=== PATIENT | female | born 1965 | race Caucasian/White ===

== ENCOUNTER 2022-06-12 06:24 | Observation (INO) | payer OTHER ==
[2022-06-12] MEDS ORDERED: SODIUM CHLORIDE 0.9% 500 ML 500 ML IV STA (07:00)
--- NOTE | 2022-06-12 07:07 | ED ---
Headache HPI - General Source: patient, RN notes reviewed, old records reviewed Mode of arrival: ambulatory Limitations: no limitations - History of Present Illness MD Complaint: headache -: hour(s) (1) Onset Description: awoke with symptoms Location: diffuse Severity scale (1-10): 4 Quality: pulsatile Consistency: constant Improves With: nothing Worsens With: none Associated Symptoms: other (tongue thick, whole body hot/cold flash) Treatments Prior to Arrival: none <Keo Fitzpatrick - Last Filed: 06/12/22 16:14> <Cinthia Queen - Last Filed: 06/12/22 23:10> - General Chief Complaint: Headache Stated Complaint: head/neck pain Time Seen by Provider: 06/12/22 06:50 - History of Present Illness Initial Comments: This is a nontoxic-appearing 56-year-old female who presents to the emergency room with complaints of awakening with a diffuse pulsatile headache, 5/10. Patient states that she felt like her tongue was swollen and hanging out of her mouth upon awakening and also reports whole-body hot and cold flashes. She den ies any difficulty in breathing, chest pain, abdominal pain, incontinence of bowel or bladder, no fevers. States that she does have a history of hypertension, hyperlipidemia, anxiety and depression. Is a previous smoker. States her daughter recently diagnoased with strep. (Keo Fitzpatrick) - Related Data Home Medications Medication Instructions Recorded Confirmed ALPRAZolam [Xanax] 0.5 mg PO HS PRN 03/15/14 06/12/22 Ibuprofen [Motrin] 800 mg PO BID PRN 03/15/14 06/12/22 Lovastatin [Mevacor] 20 mg PO HS 03/15/14 06/12/22 atenoloL 100 mg PO HS 03/15/14 06/12/22 lisinopriL [Zestril] 10 mg PO DAILY 03/15/14 06/12/22 Citalopram Hydrobromide [CeleXA] 20 mg PO HS 06/12/22 06/12/22 Fluticasone Nasal [place] [Flonase 1 spr EA NOSTRIL DAILY 06/12/22 06/12/22 Nasal [place]] Levothyroxine Sodium [Synthroid] 125 mcg PO DAILY 06/12/22 06/12/22 Omeprazole 20 mg PO DAILY PRN 06/12/22 06/12/22 hydroCHLOROthiazide 12.5 mg PO DAILY 06/12/22 06/12/22 metFORMIN HCL [Glucophage] 500 mg PO DAILY 06/12/22 06/12/22 Allergies Allergy/AdvReac Type Severity Reaction Status Date / Time No Known Allergies Allergy Verified 06/12/22 12:02 Review of Systems ROS Other: All systems not noted in ROS Statement are negative. <Keo Fitzpatrick - Last Filed: 06/12/22 16:14> ROS Other: All systems not noted in ROS Statement are negative. <Cinthia Queen - Last Filed: 06/12/22 23:10> ROS Statement: Those systems with pertinent positive or pertinent negative responses have been documented in the HPI. Past Medical History Past Medical History: Hyperlipidemia, Hypertension History of Any Multi-Drug Resistant Organisms: None Reported Past Surgical History: Tonsillectomy Past Psychological History: Anxiety, Depression Past Alcohol Use History: None Reported - Past Family History Mother Family Medical History: CVA/TIA <Keo Fitzpatrick - Last Filed: 06/12/22 16:14> General Exam Limitations: no limitations General appearance: alert, in no apparent distress Head exam: Present: atraumatic Eye exam: Present: normal appearance, EOMI. Absent: scleral icterus, conjunctival injection, periorbital swelling ENT exam: Present: mucous membranes moist Neck exam: Present: full ROM. Absent: tenderness, meningismus, lymphadenopathy, thyromegaly Respiratory exam: Absent: respiratory distress, accessory muscle use Cardiovascular Exam: Present: regular rate Extremities exam: Present: full ROM, normal capillary refill Back exam: Absent: tenderness Neurological exam: Present: alert, oriented X3 Expanded Patient oriented to: Present: person, place, time Speech: Present: fluid speech Cranial nerves: EOM's Intact: Normal, Gag Reflex: Normal Motor strength exam: RUE: 5, LUE: 5, RLE: 5, LLE: 5 Eye Response: (4) open spontaneously Motor Response: (6) obeys commands Verbal Response: (5) oriented [place] Total: 15 Psychiatric exam: Present: anxious Skin exam: Present: warm, dry, normal color. Absent: cyanosis, diaphoretic <Keo Fitzpatrick - Last Filed: 06/12/22 16:14> Course Vital Signs 06/12/22 06/12/22 06/12/22 06:26 06:48 06:50 Temperature 98 F Pulse Rate 68 67 70 Respiratory 18 20 15 Rate Blood Pressure 153/87 148/82 148/82 O2 Sat by Pulse 98 97 98 Oximetry 06/12/22 06/12/22 06/12/22 07:00 07:10 07:20 Temperature Pulse Rate 66 65 61 Respiratory 19 15 20 Rate Blood Pressure 148/82 133/81 133/81 O2 Sat by Pulse 96 96 Oximetry 06/12/22 06/12/22 06/12/22 07:30 07:40 07:50 Temperature Pulse Rate Respiratory Rate Blood Pressure 133/81 133/81 133/81 O2 Sat by Pulse 97 Oximetry 06/12/22 06/12/22 06/12/22 08:00 08:10 08:20 Temperature Pulse Rate 61 56 L 73 Respiratory Rate Blood Pressure 133/81 138/80 138/80 O2 Sat by Pulse 97 98 97 Oximetry 06/12/22 06/12/22 06/12/22 08:30 08:40 08:50 Temperature Pulse Rate 57 L 56 L 56 L Respiratory Rate Blood Pressure 138/80 138/80 138/80 O2 Sat by Pulse 94 L 95 95 Oximetry 06/12/22 06/12/22 06/12/22 09:00 09:10 09:20 Temperature Pulse Rate 34 L 57 L 57 L Respiratory Rate Blood Pressure 138/80 136/82 136/82 O2 Sat by Pulse 98 96 96 Oximetry 06/12/22 06/12/22 06/12/22 09:30 09:40 09:50 Temperature Pulse Rate 56 L 56 L 59 L Respiratory Rate Blood Pressure 136/82 136/82 136/82 O2 Sat by Pulse 97 96 96 Oximetry 06/12/22 06/12/22 06/12/22 10:00 11:00 13:33 Temperature Pulse Rate 59 L 59 L 66 Respiratory 18 18 18 Rate Blood Pressure 136/82 130/75 111/51 O2 Sat by Pulse 96 96 99 Oximetry 06/12/22 14:40 Temperature Pulse Rate 56 L Respiratory Rate Blood Pressure 94/56 O2 Sat by Pulse 94 L Oximetry Medical Decision Making - Lab Data Result diagrams: 06/12/22 07:56 06/12/22 07:56 - EKG Data -: EKG Interpreted by Me EKG shows normal: sinus rhythm (Sinus rhythm with ventricular rate of 61, MI interval 0.167, QRS 0.98, QTc 0.415, left axis deviation) <Keo Fitzpatrick - Last Filed: 06/12/22 16:14> - Lab Data Result diagrams: 06/12/22 07:56 06/12/22 07:56 <Cinthia Queen - Last Filed: 06/12/22 23:10> - Medical Decision Making States woke up this morning with pulsating headache and neck pain. Has been exposed to her daughter who tested positive for strep throat. Chest x-ray interpreted by me shows no evidence of consolidation, trachea midline. CT brain without contrast interpreted by me shows no evidence of intercranial bleed, mass or midline shift. Chest x-ray interpreted by radiologist no acute pulmonary process. CT brain interpreted by radiologist no acute intracranial process. Follow-up MRI can be performed as clinically indicated. EKG shows sinus rhythm with ventricular rate of 61, MI interval 0.167, QRS 0.98, QTc 0.415, left axis deviation Troponin elevated at 0.049. Patient denies any chest pain or shortness of breath. Patient is hemodynamically stable. She was given IV saline, magnesium, Reglan and Benadryl for her headache. Given aspirin for elevated troponin. Admitted with STEMI, cephalgia with cardiology consult Patient agreeable Case discussed with Dr. Queen Was pt. sent in by a medical professional or institution (, PA, SANITATION TANK W[employer]ER, urgent care, hospital, or senior living...) When possible be specific @ -[No] Did you speak to anyone other than the patient for history (EMS, parent, family, police, friend...)? What history was obtained from this source @ -[No] Did you review nursing and triage notes (agree or disagree)? Why? @ -[I reviewed and agree with nursing and triage notes] Were old charts reviewed (outside hosp., previous admission, EMS record, old EKG, old radiological studies, urgent care reports/EKG's, senior living records)? Report findings @ -[No old charts were reviewed] Differential Diagnosis (chest pain, altered mental status, abdominal pain women, abdominal pain men, vaginal bleeding, weakness, fever, dyspnea, syncope, head ache, dizziness, GI bleed, back pain, seizure, CVA, palpatations, mental health, musculoskeletal)? @ -Differential Headache: Migraine, tension, cluster, carbon monoxide, central venous thrombosis, pension karma temporal arteritis, acute closure glaucoma, intercranial hemorrhage, mastoiditis, sinusitis, head injury, this is not meant to be an all-inclusive list. EKG interpreted by me (3pts min.). @ -[As above] X-rays interpreted by me (1pt min.). @ -Yes as above CT interpreted by me (1pt min.). @ -Yes as above U/S interpreted by me (1pt. min.). @ -[None done] What testing was considered but not performed or refused? (CT, X-rays, U/S, labs)? Why? @ -[None] What meds were considered but not given or refused? Why? @ -Heparin was considered however deferred cardiology Did you discuss the management of the patient with other professionals (professionals i.e. , PA, [employer]IT[employer] T[employer] W[employer]ER, lab, RT, psych nurse, neonatal social worker, qualitative field coordinator, teacher, toxics program officer, lining caser)? Give summary @ -[No] Was smoking cessation discussed for >3mins.? @ -[No] Was critical care preformed (if so, how long)? @ -[No] Were there social determinants of health that impacted care today? How? (Homelessness, low income, unemployed, alcoholism, drug addiction, transportation, low edu. Level, literacy, decrease access to med. care, shelter, rehab)? @ -[No] Was there de-escalation of care discussed even if they declined (Discuss DNR or withdrawal of care, Hospice)? DNR status @ -[No] What co-morbidities impacted this encounter? (DM, HTN, Smoking, COPD, CAD, Cancer, CVA, ARF, Chemo, Hep., AIDS, mental health diagnosis, sleep apnea, morbid obesity)? @ -Obesity, hypertension, hyperlipidemia Was patient admitted / discharged? Hospital course, mention meds given and route, prescriptions, significant lab abnormalities, going to OR and other pertinent info. @ -Admitted Undiagnosed new problem with uncertain prognosis? @ -[No] Drug Therapy requiring intensive monitoring for toxicity (Heparin, Nitro, Insulin, Cardizem)? @ -[No] Were any procedures done? @ -[No] Diagnosis/symptom? @ -NSTEMI, cephalgia Acute, or Chronic, or Acute on Chronic? @ -Acute Uncomplicated (without systemic symptoms) or Complicated (systemic symptoms)? @ -Complicated Side effects of treatment? @ -[No] Exacerbation, Progression, or Severe Exacerbation? @ -[No] Poses a threat to life or bodily function? How? (Chest pain, [place], [place], pneumonia, PE, COPD, DKA, ARF, appy, cholecystitis, CVA, Diverticulitis, Homicidal, Suicidal, threat to staff... and all critical care pts) @ -Yes NSTEMI (Keo Fitzpatrick) - Lab Data Lab Results 06/12/22 06/12/22 06/12/22 Range/Units 07:56 07:56 07:56 WBC 4.6 (3.8-10.6) k/uL RBC 4.22 (3.80-5.40) m/uL Hgb 12.6 (11.4-16.0) gm/dL Hct 37.0 (34.0-46.0) % MCV 87.6 (80.0-100.0) fL MCH 30.0 (25.0-35.0) pg MCHC 34.2 (31.0-37.0) g/dL RDW 12.0 (11.5-15.5) % Plt Count 212 (150-450) k/uL MPV 8.3 Neutrophils % 60 % Lymphocytes % 27 % Monocytes % 5 % Eosinophils % 5 % Basophils % 1 % Neutrophils # 2.8 (1.3-7.7) k/uL Lymphocytes # 1.3 (1.0-4.8) k/uL Monocytes # 0.2 (0-1.0) k/uL Eosinophils # 0.2 (0-0.7) k/uL Basophils # 0.0 (0-0.2) k/uL PT 9.6 (9.0-12.0) sec INR 0.9 (<1.2) APTT 22.3 (22.0-30.0) sec Sodium 139 (137-145) mmol/L Potassium 4.1 (3.5-5.1) mmol/L Chloride 106 (98-107) mmol/L Carbon Dioxide 29 (22-30) mmol/L Anion Gap 4 mmol/L BUN 17 (7-17) mg/dL Creatinine 0.69 (0.52-1.04) mg/dL Est GFR (CKD-EPI)AfAm >90 (>60 ml/min/1.73 sqM) Est GFR (CKD-EPI)NonAf >90 (>60 ml/min/1.73 sqM) Glucose 110 H (74-99) mg/dL Calcium 8.7 (8.4-10.2) mg/dL Magnesium 2.0 (1.6-2.3) mg/dL Total Bilirubin 0.5 (0.2-1.3) mg/dL AST 24 (14-36) U/L ALT 23 (4-34) U/L Alkaline Phosphatase 63 (38-126) U/L Troponin I (0.000-0.034) ng/mL Total Protein 6.6 (6.3-8.2) g/dL Albumin 3.9 (3.5-5.0) g/dL 06/12/22 Range/Units 07:56 WBC (3.8-10.6) k/uL RBC (3.80-5.40) m/uL Hgb (11.4-16.0) gm/dL Hct (34.0-46.0) % MCV (80.0-100.0) fL MCH (25.0-35.0) pg MCHC (31.0-37.0) g/dL RDW (11.5-15.5) % Plt Count (150-450) k/uL MPV Neutrophils % % Lymphocytes % % Monocytes % % Eosinophils % % Basophils % % Neutrophils # (1.3-7.7) k/uL Lymphocytes # (1.0-4.8) k/uL Monocytes # (0-1.0) k/uL Eosinophils # (0-0.7) k/uL Basophils # (0-0.2) k/uL PT (9.0-12.0) sec INR (<1.2) APTT (22.0-30.0) sec Sodium (137-145) mmol/L Potassium (3.5-5.1) mmol/L Chloride (98-107) mmol/L Carbon Dioxide (22-30) mmol/L Anion Gap mmol/L BUN (7-17) mg/dL Creatinine (0.52-1.04) mg/dL Est GFR (CKD-EPI)AfAm (>60 ml/min/1.73 sqM) Est GFR (CKD-EPI)NonAf (>60 ml/min/1.73 sqM) Glucose (74-99) mg/dL Calcium (8.4-10.2) mg/dL Magnesium (1.6-2.3) mg/dL Total Bilirubin (0.2-1.3) mg/dL AST (14-36) U/L ALT (4-34) U/L Alkaline Phosphatase (38-126) U/L Troponin I 0.049 H* (0.000-0.034) ng/mL Total Protein (6.3-8.2) g/dL Albumin (3.5-5.0) g/dL Disposition Decision Date: 06/12/22 Decision Time: 09:03 <Keo Fitzpatrick - Last Filed: 06/12/22 16:14> <Cinthia Queen - Last Filed: 06/12/22 23:10> Clinical Impression: NSTEMI (non-ST elevated myocardial infarction), Cephalgia Disposition: ADMITTED IP TO THIS HOSP
[2022-06-12] MEDS ORDERED: METOCLOPRAMIDE 5 MG/ML 2 ML VIAL IVP STA (07:18)
[2022-06-12] MEDS ORDERED: MAGNESIUM SULFATE-D5W PMX 1 GM in DEXTROSE/WATER 1 100ML.BAG IVPB ONE (07:18)
[2022-06-12] MEDS ORDERED: diphenhydrAMINE 50 MG/ML 1 ML VIAL IVP STA (07:18)
--- NOTE | 2022-06-12 07:42 | XR ---
EXAMINATION TYPE: XR chest 2V DATE OF EXAM: 06/12/2022 COMPARISON: None INDICATION: Altered mental status, headache TECHNIQUE: Frontal and lateral views of the chest are obtained. FINDINGS: The heart size is normal. The pulmonary vasculature is normal. The lungs are clear. IMPRESSION: 1. No acute pulmonary process.
--- NOTE | 2022-06-12 07:44 | CT ---
EXAMINATION TYPE: CT brain wo con DATE OF EXAM: 06/12/2022 COMPARISON: None INDICATION: Headache DLP: 1143.4 mGycm, Automated exposure control for dose reduction was used. CONTRAST: None CT of the brain is performed utilizing 3 mm thick sections through the posterior fossa and 3 mm thick sections through the remaining calvarium. Study is performed within 24 hours of arrival to the hosp ital. No abnormal hyperdensity is present to suggest an acute intracranial hemorrhage. No mass lesion is evident. No acute infarcts are evident. Ventricles and sulci are appropriate for the patient age. Paranasal sinuses and mastoid air cells within the [id number] are clear. IMPRESSIONS: 1. No acute intracranial process. Follow-up MRI can be performed as clinically indicated.
[2022-06-12 08:14] LABS: Basophils % (A) 1 %; Eosinophils # (A) 0.2 k/uL (0-0.7); Eosinophils % (A) 5 %; HGB 12.6 gm/dL (11.4-16.0); Lymphocytes # (A) 1.3 k/uL (1.0-4.8); Lymphocytes % (A) 27 %; MCHC 34.2 g/dL (31.0-37.0); MCV 87.6 fL (80.0-100.0); Mean Platelet Volume 8.3; Monocytes # (A) 0.2 k/uL (0-1.0); Monocytes % (A) 5 %; Neutrophils # (A) 2.8 k/uL (1.3-7.7); Neutrophils % (A) 60 %; Platelet Count 212 k/uL (150-450); RBC 4.22 m/uL (3.80-5.40); WBC 4.6 k/uL (3.8-10.6)
[2022-06-12 08:26] LABS: ALT 23 U/L (4-34); AST 24 U/L (14-36); African American GFR (CKD) >90 (>60 ml/min/1.73 sqM); Albumin 3.9 g/dL (3.5-5.0); Alkaline Phosphatase 63 U/L (38-126); Anion Gap 4 mmol/L; Blood Urea Nitrogen 17 mg/dL (7-17); Calcium 8.7 mg/dL (8.4-10.2); Carbon Dioxide 29 mmol/L (22-30); Chloride 106 mmol/L (98-107); Glucose 110 mg/dL (74-99); Non-African American GFR(CKD) >90 (>60 ml/min/1.73 sqM); Potassium 4.1 mmol/L (3.5-5.1); Sodium 139 mmol/L (137-145); Total Bilirubin 0.5 mg/dL (0.2-1.3); Total Protein 6.6 g/dL (6.3-8.2)
[2022-06-12 08:48] LABS: INR 0.9 (<1.2); Partial Thromboplastin Time 22.3 sec (22.0-30.0); Prothrombin Time 9.6 sec (9.0-12.0)
[2022-06-12] MEDS ORDERED: HYDROcodone/APAP 5-325MG 1 EACH TAB PO STA (08:59)
[2022-06-12] MEDS ORDERED: ASPIRIN 81 MG PO STA (08:59)
[2022-06-12] MEDS ORDERED: NALOXONE 0.4 MG/ML 1 ML VIAL IV PRN (09:03)
[2022-06-12] MEDS ORDERED: ACETAMINOPHEN TAB 325 MG TAB PO PRN (09:08)
[2022-06-12] MEDS ORDERED: HYDROmorphone 1 MG/ML 1 ML SYRINGE IVP PRN (09:08)
[2022-06-12] MEDS ORDERED: ONDANSETRON 4 MG/2 ML VIAL IVP PRN (09:08)
[2022-06-12] MEDS: PANTOPRAZOLE 40 MG/10 ML VIAL IV SCH (10:21)
[2022-06-12] MEDS ORDERED: PANTOPRAZOLE 40 MG TABLET PO PRN (13:05)
[2022-06-12] MEDS ORDERED: ALPRAZolam 0.5 MG TAB PO PRN (13:05)
--- NOTE | 2022-06-12 13:48 | HP ---
HISTORY AND PHYSICAL CHIEF COMPLAINT: Headache and neck pain. HISTORY OF PRESENT ILLNESS: This is a 56-year-old woman with a past medical history of hypertension, hyperlipidemia, was complaining of severe headache which is 5/10, diffuse in character. The patient's tongue was swollen and the patient came to [facility]. The troponin was elevated up to 0.049 and the patient admitted for further evaluation and treatment. There is no history of any fever, rigors, or chills at this time. The troponins are transient elevation, repeat troponin was less than 0.012. There is no chest pain. PAST MEDICAL HISTORY: Reviewed, hypertension, hyperlipidemia. HOME MEDICATIONS: Reviewed include omeprazole, dose and rest of medications noted. ALLERGIES: None known. FAMILY HISTORY: No history of heart disease or strokes in the family. SOCIAL HISTORY: No history of smoking or alcohol. REVIEW OF SYSTEMS: A 14-point review of systems negative except as mentioned earlier. PHYSICAL EXAMINATION: VITAL SIGNS: Pulse 58, blood pressure 130/70, respirations 18. HEENT: Conjunctivae normal. NECK: No jugular venous distention. CARDIOVASCULAR: S1, S2. RESPIRATIONS: Clear to auscultation. ABDOMEN: Soft, nontender. LEGS: No edema, no swelling. NERVOUS SYSTEM: Nonfocal. LABORATORY DATA: CBC, CMP noted, troponin noted. ASSESSMENT: 1. Severe headache for evaluation, possibly migrainous cephalalgia. 2. Troponin 0.049, transient, rule out acute coronary syndrome. 3. Hypertension. 4. Hyperlipidemia. 5. Anxiety, depression. 6. Obesity with body mass index 42.2. RECOMMENDATIONS: This 56-year-old woman presented with multiple complex medical issues, we will monitor the patient closely. Continue the current management, continue symptomatic treatment. Otherwise at this time, I would recommend considering a protocol, cardiology consultation, resume the home medications, antiplatelet agents. Prognosis guarded because of multiple complex medical conditions. Further recommendations to follow. See orders for details. MMODL / IJN: [id number] /
[2022-06-12 16:51] LABS: Glucose,Whole Blood 92 mg/dL (70-110)
[2022-06-12] MEDS: ATORVASTATIN 10 MG TAB PO SCH (20:10)
[2022-06-12] MEDS: CITALOPRAM HYDROBROMIDE 20 MG TAB PO SCH (20:11)
[2022-06-12] MEDS: atenoloL 50 MG TAB PO SCH (20:11)
[2022-06-13] MEDS: LEVOTHYROXINE 125 MCG TAB PO SCH (06:25)
[2022-06-13 07:47] LABS: Basophils % (A) 1 %; Eosinophils # (A) 0.2 k/uL (0-0.7); Eosinophils % (A) 5 %; HCT 37.1 % (34.0-46.0); HGB 12.6 gm/dL (11.4-16.0); Lymphocytes # (A) 1.3 k/uL (1.0-4.8); Lymphocytes % (A) 35 %; MCH 29.7 pg (25.0-35.0); MCV 87.5 fL (80.0-100.0); Mean Platelet Volume 8.4; Monocytes # (A) 0.2 k/uL (0-1.0); Monocytes % (A) 6 %; Neutrophils # (A) 1.9 k/uL (1.3-7.7); Neutrophils % (A) 51 %; Platelet Count 191 k/uL (150-450); RBC 4.24 m/uL (3.80-5.40); RDW 12.5 % (11.5-15.5); WBC 3.7 k/uL (3.8-10.6)
[2022-06-13 08:14] LABS: African American GFR (CKD) >90 (>60 ml/min/1.73 sqM); Anion Gap 2 mmol/L; Blood Urea Nitrogen 12 mg/dL (7-17); Calcium 8.6 mg/dL (8.4-10.2); Carbon Dioxide 30 mmol/L (22-30); Chloride 108 mmol/L (98-107); Glucose 100 mg/dL (74-99); Non-African American GFR(CKD) >90 (>60 ml/min/1.73 sqM); Potassium 4.3 mmol/L (3.5-5.1); Sodium 140 mmol/L (137-145)
[2022-06-13] MEDS: lisinopriL 10 MG TAB PO SCH (08:31)
[2022-06-13] MEDS: metFORMIN 500 MG TAB PO SCH (08:31)
[2022-06-13] MEDS: PANTOPRAZOLE 40 MG/10 ML VIAL IV SCH (08:32)
[2022-06-13] MEDS: hydroCHLOROthiazide 12.5 MG CAP PO SCH (08:32)
[2022-06-13] MEDS: FLUTICASONE 50MCG/SPRAY NASAL 16GM EA NOSTRIL SCH (08:33)
[2022-06-13] MEDS: IBUPROFEN 800 MG TAB PO PRN ×2 (08:36→20:16)
--- NOTE | 2022-06-13 09:05 | P.CRDCN ---
History of Present Illness Consult date: 06/13/22 Chief complaint: Headache History of present illness: The patient is a pleasant 56-year-old female patient with a past medical history significant for diabetes and hypertension and dyslipidemia presented to the hospital complaining of headache. She was in her usual state of health until yesterday when she started experiencing headache about 5/10 in intensity. The headache was not associated with any dizziness or lightheadedness and no symp toms of any chest pain or chest discomfort but she stated that she felt "her tongue was swollen and numb". For that reason she decided to come to the emergency department. She underwent computed tomography scan of the brain which showed no acute abnormalities. She also underwent an EKG showing sinus rhythm with no significant ischemic ST or T-wave abnormalities. She also underwent 3 sets of cardiac enzymes with the first troponin came in to be slightly elevated but subsequently 2 more sets of troponin came in to be unremarkable. She reports no pain in the chest and no shortness of breath and no pain in the neck or back or shoulders or arms. She has no CAD but she has multiple risk factors including diabetes and hypertension and dyslipidemia. Currently she stated that she is feeling better and the headache almost resolved. On examination she has stable vital signs. She has a regular rhythm with a systolic murmur at the right upper sternal border was clear breathing sounds bilaterally and no carotid bruit or lower extremity edema noted Assessment Symptoms of headache associated "swollen and numb" Evidence of myocardial injury was no evidence of ischemia clinically at this p oint. Further risk stratification to be done Multiple risk factors including diabetes and hypertension and dyslipidemia Plan Continue current medical regimen Continue aspirin and beta marshall and statin I would suggest obtaining neurology consult to rule out any TIA Further risk stratification for the abnormal troponin including an echocardiogram to assess the EF and for any wall motion abnormalities Further recommendation to follow Past Medical History Past Medical History: Hyperlipidemia, Hypertension History of Any Multi-Drug Resistant Organisms: None Reported Past Surgical History: Tonsillectomy Past Anesthesia/Blood Transfusion Reactions: No Reported Reaction Past Psychological History: Anxiety, Depression Past Alcohol Use History: None Reported - Past Family History Mother Family Medical History: CVA/TIA Medications and Allergies Home Medications Medication Instructions Recorded Confirmed Type ALPRAZolam [Xanax] 0.5 mg PO HS PRN 03/15/14 06/12/22 History Ibuprofen [Motrin] 800 mg PO BID PRN 03/15/14 06/12/22 History Lovastatin [Mevacor] 20 mg PO HS 03/15/14 06/12/22 History atenoloL 100 mg PO HS 03/15/14 06/12/22 History lisinopriL [Zestril] 10 mg PO DAILY 03/15/14 06/12/22 History Citalopram Hydrobromide [CeleXA] 20 mg PO HS 06/12/22 06/12/22 History Fluticasone Nasal [place] [Flonase 1 spr EA NOSTRIL DAILY 06/12/22 06/12/22 History Nasal [place]] Levothyroxine Sodium [Synthroid] 125 mcg PO DAILY 06/12/22 06/12/22 History Omeprazole 20 mg PO DAILY PRN 06/12/22 06/12/22 History hydroCHLOROthiazide 12.5 mg PO DAILY 06/12/22 06/12/22 History metFORMIN HCL [Glucophage] 500 mg PO DAILY 06/12/22 06/12/22 History Allergies Allergy/AdvReac Type Severity Reaction Status Date / Time No Known Allergies Allergy Verified 06/12/22 12:02 Physical Exam Vitals: Vital Signs Temp Pulse Pulse Resp BP BP Pulse Ox 06/13/22 08:00 98 F 61 20 124/76 96 06/13/22 03:40 65 14 97/50 94 L 06/13/22 00:00 61 16 105/64 95 06/12/22 20:00 97.7 F 59 L 18 110/65 96 06/12/22 15:48 97.4 F L 58 L 20 123/69 97 06/12/22 14:40 56 L 94/56 94 L 06/12/22 13:33 66 18 111/51 99 06/12/22 11:00 59 L 18 130/75 96 06/12/22 10:00 59 L 18 136/82 96 06/12/22 09:50 59 L 136/82 96 06/12/22 09:40 56 L 136/82 96 06/12/22 09:30 56 L 136/82 97 06/12/22 09:20 57 L 136/82 96 06/12/22 09:10 57 L 136/82 96 Intake and Output 06/12/22 06/13/22 06/13/22 22:59 06:59 14:59 Other: # Voids 1 1 Weight 113.398 kg Results 06/13/22 07:12 06/13/22 07:12 Cardiac Enzymes 06/12/22 06/12/22 Range/Units 11:41 16:23 Troponin I <0.012 <0.012 (0.000-0.034) ng/mL CBC 06/13/22 Range/Units 07:12 WBC 3.7 L (3.8-10.6) k/uL RBC 4.24 (3.80-5.40) m/uL Hgb 12.6 (11.4-16.0) gm/dL Hct 37.1 (34.0-46.0) % Plt Count 191 (150-450) k/uL Comprehensive Metabolic Panel 06/13/22 Range/Units 07:12 Sodium 140 (137-145) mmol/L Potassium 4.3 (3.5-5.1) mmol/L Chloride 108 H (98-107) mmol/L Carbon Dioxide 30 (22-30) mmol/L BUN 12 (7-17) mg/dL Creatinine 0.66 (0.52-1.04) mg/dL Glucose 100 H (74-99) mg/dL Calcium 8.6 (8.4-10.2) mg/dL Current Medications Generic Name Dose Route Start Last Admin Trade Name Freq PRN Reason Stop Dose Admin Acetaminophen 650 mg 06/12/22 09:08 Acetaminophen Tab 325 Mg Tab PO Q6HR PRN Mild Pain or Fever > 100.5 Alprazolam 0.5 mg 06/12/22 13:05 Alprazolam 0.5 Mg Tab PO HS PRN Insomnia Atenolol 100 mg 06/12/22 21:00 06/12/22 20:11 Atenolol 50 Mg Tab PO 100 mg HS MARIAA Administration Atorvastatin Calcium 10 mg 06/12/22 21:00 06/12/22 20:10 Atorvastatin 10 Mg Tab PO 10 mg HS MARIAA Administration Citalopram Hydrobromide 20 mg 06/12/22 21:00 06/12/22 20:11 Citalopram Hydrobromide 20 Mg Tab PO 20 mg HS MARIAA Administration Fluticasone Propionate 1 spray 06/13/22 09:00 06/13/22 08:33 Fluticasone 50mcg/[place] Nasal 16gm EA NOSTRIL Not Given DAILY MARIAA Hydrochlorothiazide 12.5 mg 06/13/22 09:00 06/13/22 08:32 Hydrochlorothiazide 12.5 Mg Cap PO 12.5 mg DAILY MARIAA Administration Hydromorphone HCl 1 mg 06/12/22 09:08 Hydromorphone 1 Mg/Ml 1 Ml Syringe IVP Q3HR PRN Severe Pain (Scale 7 to 10) Ibuprofen 800 mg 06/12/22 13:05 06/13/22 08:36 Ibuprofen 800 Mg Tab PO 800 mg BID PRN Administration Pain Levothyroxine Sodium 125 mcg 06/13/22 06:30 06/13/22 06:25 Levothyroxine 125 Mcg Tab PO 125 mcg DAILY@0630 MARIAA Administration Lisinopril 10 mg 06/13/22 09:00 06/13/22 08:31 Lisinopril 10 Mg Tab PO 10 mg DAILY MARIAA Administration Metformin HCl 500 mg 06/13/22 09:00 06/13/22 08:31 Metformin 500 Mg Tab PO 500 mg DAILY MARIAA Administration Naloxone HCl 0.2 mg 06/12/22 09:03 Naloxone 0.4 Mg/Ml 1 Ml Vial IV Q2M PRN Opioid Reversal Ondansetron HCl 4 mg 06/12/22 09:08 Ondansetron 4 Mg/2 Ml Vial IVP Q8HR PRN Nausea And Vomiting Pantoprazole Sodium 40 mg 06/12/22 09:15 06/13/22 08:32 Pantoprazole 40 Mg/10 Ml Vial IV Not Given DAILY [facility] Pantoprazole Sodium 40 mg 06/12/22 13:05 Pantoprazole 40 Mg Tablet PO DAILY PRN Heartburn Intake and Output 06/12/22 06/13/22 06/13/22 22:59 06:59 14:59 Other: # Voids 1 1 Weight 113.398 kg 06/13/22 07:12 06/13/22 07:12
--- NOTE | 2022-06-13 14:17 | P.PN ---
Subjective Progress Note Date: 06/13/22 The patient is a pleasant 56-year-old female patient with a past medical history significant for diabetes and hypertension and dyslipidemia presented to the hospital complaining of headache. She was in her usual state of health until yesterday when she started experiencing headache about 5/10 in intensity. The headache was not associated with any dizziness or lightheadedness and no symptoms of any chest pain or chest discomfort but she stated that she felt "her tongue was swollen and numb". For that reason she decided to come to the emergency department. She underwent computed tomography scan of the brain which showed no acute abnormalities. She also underwent an EKG showing sinus rhythm with no significant ischemic ST or T-wave abnormalities. She also underwent 3 sets of cardiac enzymes with the first troponin came in to be slightly elevated but subsequently 2 more sets of troponin came in to be unremarkable. She reports no pain in the chest and no shortness of breath and no pain in the neck or back or shoulders or arms. She has no CAD but she has multiple risk factors including diabetes and hypertension and dyslipidemia. Currently she stated that she is feeling better and the headache almost resolved. On examination she has stable vital signs. She has a regular rhythm with a systolic murmur at the right upper sternal border was clear breathing sounds bilaterally and no carotid bruit or lower extremity edema noted 06/13. Patient seen and examined. States she still having headache. Denies any chest pain REVIEW OF SYSTEMS: CONSTITUTIONAL: No fever, no malaise,. CARDIOVASCULAR: No chest pain, no palpitations, no syncope. PULMONARY: No shortness of breath, no cough, GASTROINTESTINAL: No diarrhea, no nausea, no vomiting, no abdominal pain. NEUROLOGICAL: No headaches, no weakness, PHYSICAL EXAMINATION: GENERAL: The patient is alert and oriented x3, not in any acute distress. Well developed, well nourished. HEENT: Pupils are round and equally reacting to light. EOMI. No scleral icterus. No conjunctival pallor. Normocephalic, atraumatic. No pharyngeal erythema. No thyromegaly. CARDIOVASCULAR: S1 and S2 present. No murmurs, rubs, or gallops. PULMONARY: Chest is clear to auscultation, no wheezing or crackles. ABDOMEN: Soft, nontender, nondistended, normoactive bowel sounds. No palpable organomegaly. MUSCULOSKELETAL: No joint swelling or deformity. EXTREMITIES: No cyanosis, clubbing, or pedal edema. NEUROLOGICAL: Gross neurological examination did not reveal any focal deficits. SKIN: No rashes. Assessment and plan Headache Elevated troponin Hypertension Hyperlipidemia Plan; Monitor vital signs Monitor CBC Monitor CMP Continue telemetry monitoring 2-D echo ordered Trend troponins Continue home meds Cardiology consulted Neurologic consulted DVT prophylaxis: Objective - Vital Signs Vital signs: Vital Signs Temp 98 F 06/13/22 08:00 Pulse 61 06/13/22 08:00 Resp 20 06/13/22 08:00 BP 124/76 06/13/22 08:00 Pulse Ox 96 06/13/22 08:00 FiO2 Intake & Output 06/12/22 06/13/22 06/13/22 18:59 06:59 18:59 Intake Total 118 Balance 118 Weight 113.398 kg Intake: Oral 118 Other: # Voids 1 1 - Labs CBC & Chem 7: 06/13/22 07:12 06/13/22 07:12 Labs: Abnormal Lab Results - Last 24 Hours (Table) 06/13/22 06/13/22 Range/Units 07:12 07:12 WBC 3.7 L (3.8-10.6) k/uL Chloride 108 H (98-107) mmol/L Glucose 100 H (74-99) mg/dL
[2022-06-13] MEDS: atenoloL 50 MG TAB PO SCH (20:15)
[2022-06-13] MEDS: CITALOPRAM HYDROBROMIDE 20 MG TAB PO SCH (20:15)
[2022-06-13] MEDS: ATORVASTATIN 10 MG TAB PO SCH (20:16)
--- NOTE | 2022-06-14 01:45 | P.CNNES ---
History of Present Illness Consult date: 06/13/22 Requesting physician: Roger Cain Reason for Consult: Severe headache, TIA History of Present Illness: Patient is a 56-year-old female with history of hypertension, hyperlipidemia, X tobacco use came to the hospital yesterday at 6:24 AM. Patient states that she woke up yesterday at 5:30 AM in a dream that she is in the field, trying to find her house. She also realized that when she woke up her hands were snugged in t he pockets of her pajama. And she realized that her tongue was slightly stuck out. She was concerned that this was a stroke. Her head and neck were hurting bad. Her body was flushed, heart. She went to the bathroom and had bowel movement. She informed this story to her daughter, who brought her to the ER. In the ER she reported that neck pain as 4-5/10, although patient believes that it was actually 7/10. It was not as bad as the headache that she gets with her migraine, which is 10/10. She denied any focal numbness, tingling, weakness, slurred speech, facial droop or any strokelike symptoms. No visual disturbance. Patient also complains of dizziness when she gets up to go to the bathroom, off and on for last 3 months, suggestive of postural hypotension. She also feels dizzy when she rolls over in the bed to the left side. It is just a 1 weeks cycle and is fine afterwards. Patient admits to having anxiety and depression. She is just concerned that she is going to have a stroke or a heart attack. Patient also mentions that she has "issues with neck" for years, when she feels better if she drops her head down while sitting. She in fact forces her neck flexion down to relieve the pressure in the back of the neck. It relieves the pressure. 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 Her PCP gave her pain medication, but she is very concerned about taking it. She was also prescribed muscle relaxer, but she is not taking it because of concerns about side effects. She has sign ificant anxiety problem. She states that she sometimes "talks weird". She has to stop and then focus before she sees a bright. The symptoms do not appear neurological in origin. Patient's vitals on arrival blood pressure 153/87, pulse rate 68 temperature 98.0. Blood test shows normal CBC, PT/PTT, normal CMP. Troponin was borderline 0.049, which came back to normal. Influenza screen, RSV and coronavirus PCR negative. CT head revealed no acute intracranial process. I personally reviewed CT head, agree with the findings. No acute process. Paranasal sinuses are clear. Chest x-ray normal, EKG with normal sinus rhythm. Patient has history of hypertension, hyperlipidemia and states she is prediabetic. She smoked 1 pack per day for 30 years, quit 10 years ago. No previous history of seizures, denies any alcohol or marijuana. Review of Systems Constitutional: Denies chills, Denies fever Eyes: denies blurred vision, denies pain Ears: left: decreased hearing, deny: ear discharge Ears, nose, mouth and throat: Reports headache, Denies nasal discharge, Denies sore throat Cardiovascular: Denies chest pain, Denies shortness of breath Respiratory: Denies cough Gastrointestinal: Denies abdominal pain, Denies diarrhea, Denies nausea, Denies vomiting Genitourinary: Denies dysuria, Denies hematuria, Denies stress incontinence Musculoskeletal: Reports low back pain, Reports neck pain, Denies frequent falls, Denies myalgias Integumentary: Denies pruritus, Denies rash Neurological: Reports as per HPI Psychiatric: Reports anxiety, Reports depression Endocrine: Reports fatigue, Denies weight change Hematologic/Lymphatic: Denies easy bleeding, Denies easy bruising Past Medical History Past Medical History: Hyperlipidemia, Hypertension History of Any Multi-Drug Resistant Organisms: None Reported Past Surgical History: Tonsillectomy Past Anesthesia/Blood Transfusion Reactions: No Reported Reaction Past Psychological History: Anxiety, Depression Past Alcohol Use History: None Reported - Past Family History Mother Family Medical History: CVA/TIA Medications and Allergies Home Medications Medication Instructions Recorded Confirmed Type ALPRAZolam [Xanax] 0.5 mg PO HS PRN 03/15/14 06/12/22 History Ibuprofen [Motrin] 800 mg PO BID PRN 03/15/14 06/12/22 History Lovastatin [Mevacor] 20 mg PO HS 03/15/14 06/12/22 History atenoloL 100 mg PO HS 03/15/14 06/12/22 History lisinopriL [Zestril] 10 mg PO DAILY 03/15/14 06/12/22 History Citalopram Hydrobromide [CeleXA] 20 mg PO HS 06/12/22 06/12/22 History Fluticasone Nasal [place] [Flonase 1 spr EA NOSTRIL DAILY 06/12/22 06/12/22 History Nasal [place]] Levothyroxine Sodium [Synthroid] 125 mcg PO DAILY 06/12/22 06/12/22 History Omeprazole 20 mg PO DAILY PRN 06/12/22 06/12/22 History hydroCHLOROthiazide 12.5 mg PO DAILY 06/12/22 06/12/22 History metFORMIN HCL [Glucophage] 500 mg PO DAILY 06/12/22 06/12/22 History Allergies Allergy/AdvReac Type Severity Reaction Status Date / Time No Known Allergies Allergy Verified 06/12/22 12:02 Physical Examination - Vital Signs Vital Signs: Vital Signs Temp Pulse Resp BP Pulse Ox 06/13/22 11:40 98.4 F 60 20 98/49 97 06/13/22 08:00 98 F 61 20 124/76 96 06/13/22 03:40 65 14 97/50 94 L 06/13/22 00:00 61 16 105/64 95 06/12/22 20:00 97.7 F 59 L 18 110/65 96 06/12/22 15:48 97.4 F L 58 L 20 123/69 97 Intake and Output 06/13/22 06/13/22 06/13/22 06:59 14:59 22:59 Intake Total 358 Balance 358 Intake: Oral 358 Other: # Voids 1 Patient is a middle aged female, in no acute distress. Patient is alert awake oriented to time place and person. Speech and language functions are normal. Patient can name and repeat very well. No aphasia or dysarthria. Attention, concentration and fund of knowledge is adequate. On cranial nerve examination, pupils are equal, round and reacting to light, visual coleman are full on confrontation, with no neglect on double simultaneous stimulation. Extraocular muscles are intact with no nystagmus. Face is symmetric, tongue protrudes to the midline. Palatal elevation and sensation normal, hearing and shoulder shrug normal, facial sensation normal. On muscle strength testing, there is no pronator drift and the strength is normal in arms and legs distally and proximally. Deep tendon reflexes are symmetric biceps 2, brachioradialis 1+, knees 2, ankles 2 and plantars downgoing bilaterally. Sensory to touch is equal with no neglect on double simultaneous stimulation. Cerebellar function showed no ataxia for [id number] testing. No dysdiadocho kinesia. No ataxia for [id number] testing on either side. Tone and bulk of muscles normal. Gait deferred.. On general examination, there is no carotid bruit or murmur, S1-S2 audible. Chest is clear on consultation. Abdomen is soft nontender. No organomegaly, bowel sounds present. Peripheral pulses are present. No edema. Results - Laboratory Findings CBC and BMP: 06/13/22 07:12 06/13/22 07:12 Abnormal Lab Findings: Abnormal Labs 06/12/22 06/12/22 06/13/22 07:56 07:56 07:12 WBC 3.7 L Chloride Glucose 110 H Troponin I 0.049 H* 06/13/22 07:12 WBC Chloride 108 H Glucose 100 H Troponin I Assessment and Plan Assessment: * No evidence of stroke/TIA. Her symptoms are very atypical, not consistent with focal neurological deficit (waking up in a dream, and finding hands snugged in the pajamas, neck pain and tongue slightly protruded). * Chronic cervicalgia. Patient has a bad habit of forcing neck flexion in order to relieve pressure in the back of her neck. Patient was strongly recommended not to pursue this habit, as it can make her chronic cervicalgia worse due to strain on the muscles and ligaments of the neck extensors. * Hypertension * Hyperlipidemia * Anxiety and depression Plan: * Patient has cervicalgia. Short-term physical therapy may help. Suggest treatment with a course of nonsteroidal and a muscle relaxer. Patient strongly recommended to avoid forceful neck flexion to prevent worsening of chronic cervicalgia. Patient's neurological examination is normal. No other workup indicated. * Patient does have significant anxiety disorder, currently on Celexa 20 mg daily. Consider optimizing the treatment. * Neurologically clear for discharge. We will sign off. Please reconsult neurology if any other concerns. Thank you for the consult. Time with Patient: Greater than 30
[2022-06-14 04:46] VITALS: RESP 16
[2022-06-14] MEDS: LEVOTHYROXINE 125 MCG TAB PO SCH (06:26)
[2022-06-14] MEDS ORDERED: PANTOPRAZOLE 40 MG TABLET PO SCH (07:30)
[2022-06-14 08:09] VITALS: BP 114/69; PULSE 60; TEMP 98.1
[2022-06-14] MEDS: hydroCHLOROthiazide 12.5 MG CAP PO SCH (08:09)
[2022-06-14] MEDS: metFORMIN 500 MG TAB PO SCH (08:09)
[2022-06-14] MEDS: lisinopriL 10 MG TAB PO SCH (08:10)
[2022-06-14] MEDS: FLUTICASONE 50MCG/SPRAY NASAL 16GM EA NOSTRIL SCH (08:10)
--- NOTE | 2022-06-14 10:29 | P.DS ---
Providers Date of admission: 06/12/22 09:29 Expected date of discharge: 06/14/22 Attending physician: Giuseppe Huerta Consults: 06/12/22 09:08 Consult Physician Routine Consulting Provider: Arnel Stuart Consult Reason/Comments: NSTEMI Do you want consulting provider notified?: Yes, Notify in am 06/13/22 09:55 Consult Physician Routine Consulting Provider: Sawyer Bello Consult Reason/Comments: Severe headache, TIA Do you want consulting provider notified?: Yes Primary care physician: Physician Nonstaff Hospital Course: Discharge diagnoses; Chronic cervicalgia. Elevated troponin Hypertension Hyperlipidemia Anxiety and depression Hospital course; The patient is a pleasant 56-year-old female patient with a past medical history significant for diabetes and hypertension and dyslipidemia presented to the hospital complaining of headache. She was in her usual state of health until yesterday when she started experiencing headache about 5/10 in intensity. The headache was not associated with any dizziness or lightheadedness and no symptoms of any chest pain or chest discomfort but she stated that she felt "her tongue was swollen and numb". For that reason she decided to come to the emergency department. She underwent computed tomography scan of the brain which showed no acute abnormalities. She also underwent an EKG showing sinus rhythm with no significant ischemic ST or T-wave abnormalities. She also underwent 3 sets of cardiac enzymes with the first troponin came in to be slightly elevated but subsequently 2 more sets of troponin came in to be unremarkable. 06/13. Patient seen and examined. States she still having headache. Denies any chest pain. Patient was seen by cardiology, they recommended at this time there was no need for any ischemic workup. Neurology also consulted for headache, they think patient most likely has cervicalgia. Short-term physical therapy may help. Suggest treatment with a course of nonsteroidal and a muscle relaxer. Patient strongly recommended to avoid forceful neck flexion to prevent worsening of chronic cervicalgia. Patient's neurological examination is normal. No other workup indicated. 06/14. Patient feeling much better. Being discharged in stable condition PHYSICAL EXAMINATION: GENERAL: The patient is alert and oriented x3, not in any acute distress. Well developed, well nourished. HEENT: Pupils are round and equally reacting to light. EOMI. No scleral icterus. No conjunctival pallor. Normocephalic, atraumatic. No pharyngeal erythema. No thyromegaly. CARDIOVASCULAR: S1 and S2 present. No murmurs, rubs, or gallops. PULMONARY: Chest is clear to auscultation, no wheezing or crackles. ABDOMEN: Soft, nontender, nondistended, normoactive bowel sounds. No palpable organomegaly. MUSCULOSKELETAL: No joint swelling or deformity. EXTREMITIES: No cyanosis, clubbing, or pedal edema. NEUROLOGICAL: Gross neurological examination did not reveal any focal deficits. SKIN: No rashes. Plan - Discharge Summary Discharge Rx Participant: No New Discharge Prescriptions: Continue Lovastatin [Mevacor] 20 mg PO HS lisinopriL [Zestril] 10 mg PO DAILY Ibuprofen [Motrin] 800 mg PO BID PRN PRN Reason: Pain atenoloL 100 mg PO HS ALPRAZolam [Xanax] 0.5 mg PO HS PRN PRN Reason: Insomnia hydroCHLOROthiazide 12.5 mg PO DAILY Levothyroxine Sodium [Synthroid] 125 mcg PO DAILY Omeprazole 20 mg PO DAILY PRN PRN Reason: Heartburn Citalopram Hydrobromide [CeleXA] 20 mg PO HS metFORMIN HCL [Glucophage] 500 mg PO DAILY Fluticasone Nasal [place] [Flonase Nasal [place]] 1 spr EA NOSTRIL DAILY Discharge Medication List ALPRAZolam [Xanax] 0.5 mg PO HS PRN 03/15/14 [History] Ibuprofen [Motrin] 800 mg PO BID PRN 03/15/14 [History] Lovastatin [Mevacor] 20 mg PO HS 03/15/14 [History] atenoloL 100 mg PO HS 03/15/14 [History] lisinopriL [Zestril] 10 mg PO DAILY 03/15/14 [History] Citalopram Hydrobromide [CeleXA] 20 mg PO HS 06/12/22 [History] Fluticasone Nasal [place] [Flonase Nasal [place]] 1 spr EA NOSTRIL DAILY 06/12/22 [History] Levothyroxine Sodium [Synthroid] 125 mcg PO DAILY 06/12/22 [History] Omeprazole 20 mg PO DAILY PRN 06/12/22 [History] hydroCHLOROthiazide 12.5 mg PO DAILY 06/12/22 [History] metFORMIN HCL [Glucophage] 500 mg PO DAILY 06/12/22 [History] Follow up Appointment(s)/Referral(s): Nonstaff,Physician [Primary Care Provider] - 1-2 days Discharge Disposition: HOME SELF-CARE
--- NOTE | 2022-06-14 13:31 | CA ---
Transthoracic Echo Report Name: Carrie Bansal Age: 56 Gender: F : 1965 Exam Date: 06/14/2022 11:50 Exam Location: [place] [facility] Ht (in): 64 Wt (lb): 250 Ordering Physician: Arnel Stuart MD ([id number]) Attending/Referring Phys: Manager [employer] Nataliia De Santiago RDCS Procedure CPT: Indications: LV function Cardiac Hx: Technical Quality: Fair Contrast 1: Total Dose (mL): Contrast 2: Total Dose (mL): MEASUREMENTS (Male / Female) Normal Values 2D ECHO LV Diastolic Diameter PLAX 4.4 cm 4.2 - 5.9 / 3.9 - 5.3 cm LV Systolic Diameter PLAX 2.8 cm IVS Diastolic Thickness 1.1 cm 0.6 - 1.0 / 0.6 - 0.9 cm LVPW Diastolic Thickness 1.0 cm 0.6 - 1.0 / 0.6 - 0.9 cm LV Relative Wall Thickness 0.5 RV Internal Dim ED PLAX 2.4 cm LA Volume 40.3 cm??? 18 - 58 / 22 - 52 cm??? M-MODE Aortic Root Diameter MM 3.0 cm LA Systolic Diameter MM 3.7 cm LA Ao Ratio MM 1.2 AV Cusp Separation MM 2.4 cm DOPPLER AV Peak Velocity 134.8 cm/s AV Peak Gradient 7.3 mmHg AV Mean Velocity 100.1 cm/s AV Mean Gradient 4.3 mmHg AV Velocity Time Integral 31.6 cm LVOT Peak Velocity 124.5 cm/s LVOT Peak Gradient 6.2 mmHg LVOT Velocity Time Integral 26.1 cm MV Area PHT 4.1 cm??? Mitral E Point Velocity 106.5 cm/s Mitral A Point Velocity 68.1 cm/s Mitral E to A Ratio 1.6 MV Deceleration Time 184.6 ms MV E' Velocity 9.3 cm/s Mitral E to MV E' Ratio 11.5 TR Peak Velocity 251.7 cm/s TR Peak Gradient 25.3 mmHg Right Ventricular Systolic Press 30.3 mmHg FINDINGS Left Ventricle Mildly increased left ventricular wall thickness. Left ventricular cavity size normal. Normal left ventricular systolic function with no obvious regional wall motion abnormalities. Left ventricular ejection fraction is estimated at 55-60 %. Right Ventricle Normal right ventricular size and function. Right ventricular systolic pressure within normal limits. Right Atrium Normal right atrial size. Left Atrium Normal left atrial size. Mitral Valve Structurally normal mitral valve. Trace mitral regurgitation. Aortic Valve No aortic valve stenosis or regurgitation. Tricuspid Valve Structurally normal tricuspid valve. Mild tricuspid regurgitation. Pulmonic Valve Structurally normal pulmonic valve. Trace pulmonic regurgitation. Pericardium No pericardial effusion. Aorta Normal size aortic root and proximal ascending aorta. CONCLUSIONS Mild increased left ventricular wall thickness Left ventricular ejection fraction 55-60% Trace mitral regurgitation Mild tricuspid regurgitation No pericardial effusion Previewed by: Dr. Balaji Flaherty DO (Electronically Signed) Final Date: 14 June 2022 13:30
== END 2022-06-14 13:14 | disposition home or self-care (01) ==
LOC: EC 06:24 → 3SCARD 09:29
PROVIDERS: ADMIT Hospitalist; ATTEND Hospitalist
DX: M54.2 Cervicalgia (principal); G89.29 Other chronic pain; R77.8 Other specified abnormalities of plasma proteins; F32.A Depression, unspecified; I08.1 Rheumatic disorders of both mitral and tricuspid valves; I37.1 Nonrheumatic pulmonary valve insufficiency; F41.9 Anxiety disorder, unspecified; I10 Essential (primary) hypertension; E78.5 Hyperlipidemia, unspecified; F17.200 Nicotine dependence, unspecified, uncomplicated; E66.9 Obesity, unspecified; Z79.899 Other long term (current) drug therapy; Z79.890 Hormone replacement therapy; Z79.84 Long term (current) use of oral hypoglycemic drugs; Z82.3 Family history of stroke; Z68.41 Body mass index [BMI] 40.0-44.9, adult
CPT/HCPCS: 96361; 96365; 96366; 96375; 99285; 36415; 93005; 93306; 80053; 80048; 83735; 84484; 85025 ×2; 85610; 85730; 87636; 71046; 70450; G0378 ×3; J1200; J2765; J3475

== ENCOUNTER 2023-12-31 14:38 | Emergency (ER) | payer OTHER ==
--- NOTE | 2023-12-31 15:20 | ED ---
Upper Extremity HPI - General Chief Complaint: Extremity Injury, Upper Stated Complaint: IHS-Fall/L elbow injury Time Seen by Provider: 12/31/23 15:18 Source: patient, RN notes reviewed Mode of arrival: ambulatory Limitations: no limitations - History of Present Illness Initial Comments: 58-year-old female presenting for left elbow injury at work. States she was walking up to a house when she lost her balance on uneven sidewalk and fell, landing on her left shoulder. She has some abrasions over the posterior shoulder. Denies head injury. Admits some mild left knee pain however denies any difficulty ambulating. - Related Data Home Medications Medication Instructions Recorded Confirmed ALPRAZolam [Xanax] 0.5 mg PO HS PRN 03/15/14 06/12/22 Ibuprofen [Motrin] 800 mg PO BID PRN 03/15/14 06/12/22 Lovastatin [Mevacor] 20 mg PO HS 03/15/14 06/12/22 atenoloL 100 mg PO HS 03/15/14 06/12/22 lisinopriL [Zestril] 10 mg PO DAILY 03/15/14 06/12/22 Citalopram Hydrobromide [CeleXA] 20 mg PO HS 06/12/22 06/12/22 Fluticasone Nasal [place] [Flonase 1 spr EA NOSTRIL DAILY 06/12/22 06/12/22 Nasal [place]] Levothyroxine Sodium [Synthroid] 125 mcg PO DAILY 06/12/22 06/12/22 Omeprazole 20 mg PO DAILY PRN 06/12/22 06/12/22 hydroCHLOROthiazide 12.5 mg PO DAILY 06/12/22 06/12/22 metFORMIN HCL [Glucophage] 500 mg PO DAILY 06/12/22 06/12/22 Allergies Allergy/AdvReac Type Severity Reaction Status Date / Time No Known Allergies Allergy Verified 06/12/22 12:02 Review of Systems ROS Statement: Those systems with pertinent positive or pertinent negative responses have been documented in the HPI. ROS Other: All systems not noted in ROS Statement are negative. Past Medical History Past Medical History: Hyperlipidemia, Hypertension History of Any Multi-Drug Resistant Organisms: None Reported Past Surgical History: Tonsillectomy Past Anesthesia/Blood Transfusion Reactions: No Reported Reaction Past Psychological History: Anxiety, Depression Past Alcohol Use History: None Reported - Past Family History Mother Family Medical History: CVA/TIA General Exam Limitations: no limitations General appearance: alert, in no apparent distress Head exam: Present: atraumatic, normocephalic, normal inspection Eye exam: Present: normal appearance, PERRL, EOMI. Absent: scleral icterus, conjunctival injection, periorbital swelling ENT exam: Present: normal exam, mucous membranes moist Neck exam: Present: normal inspection. Absent: tenderness, meningismus, lymphadenopathy Left Upper Arm exam: Present: normal inspection, full ROM. Absent: tenderness, swelling Elbow exam: Present: full ROM, abrasion. Absent: normal inspection (Abrasions with no active bleeding present on dorsal elbow), tenderness, swelling, laceration, deformity, dislocation, pain w/ pronation/supination, tenderness over radial head Forearm Wrist exam: Present: normal inspection, full ROM. Absent: tenderness, swelling Hand Wrist exam: Present: normal inspection, full ROM. Absent: tenderness, swelling Vascular: Present: normal capillary refill, radial pulse. Absent: vascular compromise Neurological exam: Present: alert, oriented X3 Psychiatric exam: Present: normal affect, normal mood Skin exam: Present: warm, dry, intact, normal color. Absent: rash Course Vital Signs 12/31/23 12/31/23 14:40 17:04 Temperature 98.2 F 98.0 F Pulse Rate 73 70 Respiratory 16 18 Rate Blood Pressure 142/85 136/80 O2 Sat by Pulse 96 96 Oximetry Medical Decision Making - Medical Decision Making Was pt. sent in by a medical professional or institution (, PA, FIELD PROPERTY LOSS SPECIALIST, urgent care, hospital, or correction...) When possible be specific @ -No Did you speak to anyone other than the patient for history (EMS, parent, family, police, friend...)? What history was obtained from this source @ -No Did you review nursing and triage notes (agree or disagree)? Why? @ -I reviewed and agree with nursing and triage notes Were old charts reviewed (outside hosp., previous admission, EMS record, old EKG, old radiological studies, urgent care reports/EKG's, correction records)? Report findings @ -No old charts were reviewed Differential Diagnosis (chest pain, altered mental status, abdominal pain women, abdominal pain men, vaginal bleeding, weakness, fever, dyspnea, syncope, headache, dizziness, GI bleed, back pain, seizure, CVA, palpatations, mental health, musculoskeletal)? @ -Differential Musculoskeletal Muscular strain, contusion, ligament sprain, fracture, arthritis, septic arthritis, bursitis, cellulitis, muscle spasm, nerve compression, DVT, arterial occlusion, herpes zoster, electrolyte abnormality, tumor.... This is not meant to be in all inclusive list EKG interpreted by me (3pts min.). @ -None X-rays interpreted by me (1pt min.). @ -X-ray left elbow reveals no acute process CT interpreted by me (1pt min.). @ -None done U/S interpreted by me (1pt. min.). @ -None done What testing was considered but not performed or refused? (CT, X-rays, U/S, labs)? Why? @ -None What meds were considered but not given or refused? Why? @ -None Did you discuss the management of the patient with other professionals (pro fessionals i.e. , PA, FIELD PROPERTY LOSS SPECIALIST, lab, RT, psych nurse, delinquency prevention social worker, call center coordinator, teacher, liaison officer, medical case manager)? Give summary @ -No Was smoking cessation discussed for >3mins.? @ -No Was critical care preformed (if so, how long)? @ -No Were there social determinants of health that impacted care today? How? (Homelessness, low income, unemployed, alcoholism, drug addiction, transportation, low edu. Level, literacy, decrease access to med. care, detention, rehab)? @ -No Was there de-escalation of care discussed even if they declined (Discuss DNR or withdrawal of care, Hospice)? DNR status @ -No What co-morbidities impacted this encounter? (DM, HTN, Smoking, COPD, CAD, Cancer, CVA, ARF, Chemo, Hep., AIDS, mental health diagnosis, sleep apnea, morbid obesity)? @ -None Was patient admitted / discharged? Hospital course, mention meds given and route, prescriptions, significant lab abnormalities, going to OR and other pertinent info. @ -Discharge. This is a 58-year-old female presenting with left elbow injury prior to arrival. Denies head injury. There are mild abrasions and dorsal elbow, no active bleeding. Neurovascularly intact. X-ray revealed no acute process. Negative findings discussed with patient. Supportive care discussed as well as return precautions. Case was discussed with my ED attending Dr. Lake. Patient discharged stable condition. Undiagnosed new problem with uncertain prognosis? @ -No Drug Therapy requiring intensive monitoring for toxicity (Heparin, Nitro, Insulin, Cardizem)? @ -No Were any procedures done? @ -No Diagnosis/symptom? @ -Left elbow strain Acute, or Chronic, or Acute on Chronic? @ -Acute Uncomplicated (without systemic symptoms) or Complicated (systemic symptoms)? @ -Uncomplicated Side effects of treatment? @ -No Exacerbation, Progression, or Severe Exacerbation? @ -No Poses a threat to life or bodily function? How? (Chest pain, [place], [place], pneumonia, PE, COPD, DKA, ARF, appy, cholecystitis, CVA, Diverticulitis, Homicidal, Suicidal, threat to staff... and all critical care pts) @ -No Disposition Clinical Impression: Strain of left elbow Disposition: HOME SELF-CARE Condition: Stable Instructions (If sedation given, give patient instructions): Elbow Sprain (ED) Additional Instructions: Please return to the Emergency Department if symptoms worsen or any other concerns. Is patient prescribed a controlled substance at d/c from ED?: No Referrals: Jan Mo MD [Primary Care Provider] - 1-2 days Time of Disposition: 16:59
--- NOTE | 2023-12-31 16:57 | XR ---
EXAMINATION TYPE: XR elbow complete LT DATE OF EXAM: 12/31/2023 COMPARISON: None HISTORY: Pain left elbow, tripped and fall TECHNIQUE: 3 view left elbow FINDINGS: Anterior fat pad is normal. No elevation of posterior fat pad is evident which is normal. R adius aligns normally with the humerus. No acute fractures or dislocations evident. Soft tissues appe ar normal. Follow-up exams can be performed 7-10 days from acute trauma for continued pain. IMPRESSION: 1. No acute osseous abnormality left elbow [facility] Sandeep Armstrong, Workstation: [facility], 12/31/2023 4:54 PM
[2023-12-31 17:06] VITALS: BP 136/80; PULSE 70; RESP 18; TEMP 98
== END 2023-12-31 17:04 | disposition home or self-care (01) ==
LOC: EC 14:38
CPT/HCPCS: 99283

== ENCOUNTER 2024-09-14 16:36 | Emergency (ER) | payer OTHER ==
--- NOTE | 2024-09-14 19:11 | ED ---
Recheck HPI - General Chief Complaint: Needlestick/Exposure Stated Complaint: IHS, Needle poke Time Seen by Provider: 09/14/24 18:03 Source: patient Mode of arrival: ambulatory Limitations: no limitations - History of Present Illness Initial Comments: 58-year-old female here for needlestick injury. 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 She tells me that this happened with the patient and another employee last month and she was informed that the patient tested negative for blood-borne pathogens. Patient does not want any postexposure prophylaxis today. - Related Data Home Medications Medication Instructions Recorded Confirmed ALPRAZolam [Xanax] 0.5 mg PO HS PRN 03/15/14 06/12/22 Ibuprofen [Motrin] 800 mg PO BID PRN 03/15/14 06/12/22 Lovastatin [Mevacor] 20 mg PO HS 03/15/14 06/12/22 atenoloL 100 mg PO HS 03/15/14 06/12/22 lisinopriL [Zestril] 10 mg PO DAILY 03/15/14 06/12/22 Citalopram Hydrobromide [CeleXA] 20 mg PO HS 06/12/22 06/12/22 Fluticasone Nasal [place] [Flonase 1 spr EA NOSTRIL DAILY 06/12/22 06/12/22 Nasal [place]] Levothyroxine Sodium [Synthroid] 125 mcg PO DAILY 06/12/22 06/12/22 Omeprazole 20 mg PO DAILY PRN 06/12/22 06/12/22 hydroCHLOROthiazide 12.5 mg PO DAILY 06/12/22 06/12/22 metFORMIN HCL [Glucophage] 500 mg PO DAILY 06/12/22 06/12/22 Allergies Allergy/AdvReac Type Severity Reaction Status Date / Time No Known Allergies Allergy Verified 09/14/24 17:27 Review of Systems ROS Statement: Those systems with pertinent positive or pertinent negative responses have been documented in the HPI. ROS Other: All systems not noted in ROS Statement are negative. Past Medical History Past Medical History: Hyperlipidemia, Hypertension History of Any Multi-Drug Resistant Organisms: None Reported Past Surgical History: Tonsillectomy Past Anesthesia/Blood Transfusion Reactions: No Reported Reaction Past Psychological History: Anxiety, Depression Smoking Status: Former smoker Past Alcohol Use History: None Reported Past Drug Use History: None Reported - Past Family History Mother Family Medical History: CVA/TIA General Exam Limitations: no limitations General appearance: alert, in no apparent distress Head exam: Present: atraumatic, normocephalic, normal inspection Eye exam: Present: normal appearance, EOMI Neck exam: Present: normal inspection. Absent: meningismus Respiratory exam: Absent: respiratory distress Cardiovascular Exam: Present: regular rate Neurological exam: Present: alert, oriented X3 Psychiatric exam: Present: normal affect, normal mood Skin exam: Present: warm, dry, normal color Course Vital Signs 09/14/24 09/14/24 17:25 19:56 Temperature 98.1 F 98.2 F Pulse Rate 75 73 Respiratory 20 16 Rate Blood Pressure 122/75 145/78 O2 Sat by Pulse 97 96 Oximetry Medical Decision Making - Medical Decision Making Was pt. sent in by a medical professional or institution (, PA, RN ADVICE, urgent care, hospital, or jail...) When possible be specific @ -No Did you speak to anyone other than the patient for history (EMS, parent, family, police, friend...)? What history was obtained from this source @ -No Did you review nursing and triage notes (agree or disagree)? Why? @ -I reviewed and agree with nursing and triage notes Were old charts reviewed (outside hosp., previous admission, EMS record, old EKG, old radiological studies, urgent care reports/EKG's, jail records)? Report findings @ -No old charts were reviewed Differential Diagnosis (chest pain, altered mental status, abdominal pain women, abdominal pain men, vaginal bleeding, weakness, fever, dyspnea, syncope, headache, dizziness, GI bleed, back pain, seizure, CVA, palpatations, mental health, musculoskeletal)? @ -Not applicable EKG interpreted by me (3pts min.). @ -As above X-rays interpreted by me (1pt min.). @ -None done CT interpreted by me (1pt min.). @ -None done U/S interpreted by me (1pt. min.). @ -None done What testing was considered but not performed or refused? (CT, X-rays, U/S, labs)? Why? @ -None What meds were considered but not given or refused? Why? @ -None Did you discuss the management of the patient with other professionals (professionals i.e. DrMadhavi, PA, RN ADVICE, lab, RT, psych nurse, social security specialist, shake feeder, teacher, human resources officer, child welfare caseworker)? Give summary @ -No Was smoking cessation discussed for >3mins.? @ -No Was critical care preformed (if so, how long)? @ -No Were there social determinants of health that impacted care today? How? (Homelessness, low income, unemployed, alcoholism, drug addiction, transportation, low edu. Level, literacy, decrease access to med. care, [facility], rehab)? @ -No Was there de-escalation of care discussed even if they declined (Discuss DNR or withdrawal of care, Hospice)? DNR status @ -No What co-morbidities impacted this encounter? (DM, HTN, Smoking, COPD, CAD, Cancer, CVA, ARF, Chemo, Hep., AIDS, mental health diagnosis, sleep apnea, morbid obesity)? @ -None Was patient admitted / discharged? Hospital course, mention meds given and route, prescriptions, significant lab abnormalities, going to OR and other per tinent info. @ -58-year-old female who got a needlestick injury at work. Patient declines postexposure prophylaxis. Labs are drawn and sent to the laboratory with the proper forms. Follow-up with PCP. Report back to ER with any new or worsening symptoms. Patient conveyed verbal understanding and agreed to the plan. I discussed this case in detail with my attending Dr. Wong Undiagnosed new problem with uncertain prognosis? @ -No Drug Therapy requiring intensive monitoring for toxicity (Heparin, Nitro, Insulin, Cardizem)? @ -No Were any procedures done? @ -No Diagnosis/symptom? @ -Needlestick injury Acute, or Chronic, or Acute on Chronic? @ -Acute Uncomplicated (without systemic symptoms) or Complicated (systemic symptoms)? @ -Uncomplicated Side effects of treatment? @ -No Exacerbation, Progression, or Severe Exacerbation? @ -No Poses a threat to life or bodily function? How? (Chest pain, [place], [place], pneumonia, PE, COPD, DKA, ARF, appy, cholecystitis, CVA, Diverticulitis, Homicidal, Suicidal, threat to staff... and all critical care pts) @ -Unlikely Disposition Clinical Impression: Needlestick injury accident Disposition: HOME SELF-CARE Condition: Good Instructions (If sedation given, give patient instructions): Needle Stick Injuries (ED) Additional Instructions: Follow-up with PCP. Report back to ER with any new or worsening symptoms. Is patient prescribed a controlled substance at d/c from ED?: No Referrals: Jan Mo MD [Primary Care Provider] - 1-2 days Time of Disposition: 19:11
[2024-09-14 19:58] VITALS: BP 145/78; PULSE 73; RESP 16; TEMP 98.2
== END 2024-09-14 19:56 | disposition home or self-care (01) ==
LOC: EC 16:36
DX: Z77.21 Contact with and (suspected) exposure to potentially hazardous body fluids (principal); Z87.891 Personal history of nicotine dependence; W46.0XXA Contact with hypodermic needle, initial encounter; Y99.0 Civilian activity done for income or pay
CPT/HCPCS: 99282